=== PATIENT | male | born 1955 | race Caucasian/White ===

== ENCOUNTER → 2018-09-01 | Outpatient (CLI) | payer BC ==
--- NOTE | 2018-09-01 11:34 | PCVCIMAG ---
APPROVED REPORT Imaging Protocol: Rest Tc-99m/Stress Tc-99m 1 day Study performed: 09/01/2018 09:13:46 Indication: CAD , Palpitations , Pre-Operative CV evaluation Patient Location: Out-Patient Stress Nurse: Martha Dumont RN, Cheryl Jama RN GA Tech:NELLIE Davis Ht: 5 ft 9 in Wt: 140 lbs BSA: 1.78 m2 HR: 73 bpm BP: 149/82 mmHg BMI: 20.67 Rhythm: Sinus Rhythm, RBBB Medical History Medical History: Hyperlipidemia, HTN, CVD, Current Smoker, MA Medications: Atenolol, Atorvastatin, Lisinopril Allergies: No known drug allergies Cardiac Risk Factors: Age Previous Cardiac Procedures: PCI - Stent to LAD Pretest Chest Pain Characteristics: No chest pain Exercise History: Physically active Meds Held (24 hrs): Atenolol Resting Data Rest SPECT myocardial perfusion imaging was performed in supine position 45 minutes following the intravenous injection of 10.1 mCi of Tc-99m Sestamibi. Time of rest injection: 0845 Date: 09/01/2018 Administration Route: IV Administration Site: Right Arm Exercise Stress At peak stress, the patient was injected intravenously with 35.2mCi of Tc-99m Sestamibi. Time of stress injection: 1000 Date: 09/01/2018 Administration Route: IV Administration Site: Right Arm Patient continued to exercise for 1 minute(s). Gated Stress SPECT was performed 30 minutes after stress injection. The images were gated to evaluate regional wall motion and calculate left ventricular ejection fraction. Stress Test Details Stress Test: Exercise stress testing was performed using a Saurabh protocol. HRMax Heart Rate (APMHR): 157 bpm Resting HR: 73 bpmTarget HR (85% APMHR): 133 bpm Max HR Achieved: 139 bpm % of APMHR: 88 Recovery HR: 90 bpm BP Resting BP: 149/82 mmHg Max BP: 176/78 mmHg Recovery BP: 169/86 mmHg ECG Resting ECG: Sinus Rhythm, RBBB Stress ECG: Sinus Rhythm, RBBB ST Change: Non-ischemic Maximum ST Deviation: 0.95 mm Arrhythmia: PVC's Recovery ECG: Sinus Rhythm, RBBB Clinical Reason for Termination: Maximal effort Stress Symptoms: Leg Fatigue Exercise duration: 9 min 10 sec Exercise capacity: 10.10 METs Overall Exercise Capacity for Age: Good Angina Score: None Symptoms resolved during recovery. Stress ECG Conclusion Verma Treadmill Score is 4.3 which is Moderate risk. Study Quality Study: Good Study Data Post stress, the left ventricular ejection was 46%.. SSS: 13 SRS: 17 SDS: 0 TID = 0.96. Perfusion There is a medium area of moderately reduced uptake in the basal and mid segment of the inferolateral wall which is seen on the stress images as well as the resting images. This area is hypokinetic and is most consistent with myocardial scar. Wall Motion Mildly decreased left ventricular systolic function. Nuclear Conclusion ECG Findings: negative for ischemia Clinical Findings: negative for ischemia Nuclear Findings: positive for infarct Exercise Capacity: normal Left Ventricular Function: abnormal This study reveals an infarct in the mid to basal inferolateral segment. This study is of low probability for inducible ischemia. There is mild segmental LV dysfunction.
== END | disposition home or self-care (01) ==
LOC: PCVCIMAG 08:11
PROVIDERS: ATTEND Internal Medicine Cardiovascular Disease
DX: Z01.810 Encounter for preprocedural cardiovascular examination (principal); I25.10 Atherosclerotic heart disease of native coronary artery without angina pectoris; R00.2 Palpitations; E78.5 Hyperlipidemia, unspecified; I10 Essential (primary) hypertension
CPT/HCPCS: 78452; 93017; A9500